=== PATIENT | male | born 1960 | race Caucasian/White ===

== ENCOUNTER 2017-10-08 19:36 | Emergency (ER) | payer SELFPAY ==
[~2017-10-08] VITALS: Ht 167.6 cm; Wt 70.3 kg
[2017-10-08 19:47] VITALS: Ht 167.6 cm; Wt 70.3 kg
[2017-10-09 00:20] VITALS: BP 146/89
== END 2017-10-09 00:20 | disposition home or self-care (01) ==
LOC: EDBD 19:36 → ED 19:36
DX: F10.129 Alcohol abuse with intoxication, unspecified (principal); R07.89 Other chest pain
CPT/HCPCS: J1885